=== PATIENT | female | born 1985 | race Caucasian/White ===

== ENCOUNTER 2017-04-18 00:17 | Inpatient (IN) | payer BC ==
[~2017-04-18] VITALS: Ht 162.6 cm; Wt 70.0 kg
[2017-04-18] MEDS ORDERED: PRENATAL VITAM1 EACH PO (01:58)
--- NOTE | 2017-04-18 13:21 | PR ---
[facility] [address] [facility] [place], [place] [address] Signed Progress Notes IP Datetime Report Generated by CPN: 04/18/2017 13:21 PROGRESS NOTES: [id number] Impression: Normal progression of labor Procedures: Sterile Vag Exam Plan: Continue present management Informed Consent Obtain: Vaginal Delivery; Risks, Benefits and Alternatives Discussed VITAL SIGNS: [id number] Vital Signs: Reviewed; Within Normal Limits EXAM: [id number] Dilatation: 4.0 Effacement: 80 Station: -2 Uterine Contractions: every one to three minutes MEMBRANES: [id number] Membrane Status: Ruptured Amniotic Fluid Color: Clear Comments: patient progressing. status reassuring Fetus A: [id number] FHR Baseline: 1390's Variability: Moderate 6-25bpm Accelerations: 15X15 Decelerations: Variable FHR Category: Category I Presentation: Vertex Comments on Fetus A: reactive Fetus B: [id number] Signing Physician: Ariana Oneill MD CC: *Electronically Signed* 04/18/17 1321 ARIANA ONEILL MD PATIENT NAME: KIMANI GUTIERREZ PROGRESS NOTE DATE OF : 83 PHYSICIAN: ARIANA ONEILL MD RPT #: [id number] REPORT IS CONFIDENTIAL AND NOT TO BE RELEASED WITHOUT AUTHORIZATION
--- NOTE | 2017-04-18 17:28 | PR ---
[facility] [address] [facility] [place], [place] [address] Signed Progress Notes IP Datetime Report Generated by CPSarah: 04/18/2017 17:27 PROGRESS NOTES: [id number] Impression: Slow Progression of Labor Procedures: Scalp Electrode; Sterile Vag Exam Plan: Continue present management; Augmentation Informed Consent Obtain: Vaginal Delivery; Risks, Benefits and Alternatives Discussed VITAL SIGNS: [id number] Vital Signs: Reviewed; Within Normal Limits EXAM: [id number] Dilatation: 5.0 Effacement: 85 Station: -2 Uterine Contractions: every one to four minutes MEMBRANES: [id number] Membrane Status: Ruptured Amniotic Fluid Color: Clear ROM Note: amniotomy performed, copious clear fluid Comments: slowly progressing - augmentation Fetus A: [id number] FHR Baseline: 130's Variability: Moderate 6-25bpm Accelerations: 15X15 Decelerations: None FHR Category: Category I Presentation: Vertex Comments on Fetus A: reactive Fetus B: [id number] Signing Physician: Ariana Oneill MD CC: *Electronically Signed* 04/18/17 1727 ARIANA ONEILL MD PATIENT NAME: KIMANI GUTIERREZ PROGRESS NOTE DATE OF : 83 PHYSICIAN: ARIANA ONEILL MD RPT #: [id number] REPORT IS CONFIDENTIAL AND NOT TO BE RELEASED WITHOUT AUTHORIZATION
--- NOTE | 2017-04-18 19:57 | PR ---
[facility] [address] [facility] [place], [place] [address] Signed Progress Notes IP Datetime Report Generated by CPN: 04/18/2017 19:57 PROGRESS NOTES: [id number] Impression: Reassuring heart rate Procedures: Epidural Placement Plan: Continue present management; Augmentation Informed Consent Obtain: Vaginal Delivery; Risks, Benefits and Alternatives Discussed VITAL SIGNS: [id number] Vital Signs: Reviewed; Within Normal Limits EXAM: [id number] Dilatation: 7.0 Effacement: 85 Station: -2 Uterine Contractions: every one to three minues MEMBRANES: [id number] Membrane Status: Ruptured Amniotic Fluid Color: Clear ROM Note: amniotomy performed, copious clear fluid Comments: patient comfortable now with epidural in place. Fetus A: [id number] FHR Baseline: 140's Variability: Moderate 6-25bpm Accelerations: 10X10 Decelerations: Variable FHR Category: Category I Presentation: Vertex Comments on Fetus A: reassuring Fetus B: [id number] Signing Physician: Ariana Oneill MD CC: *Electronically Signed* 04/18/171956 ARIANA ONEILL MD PATIENT NAME: KIMANI GUTIERREZ PROGRESS NOTE DATE OF : 83 PHYSICIAN: ARIAAN ONEILL MD RPT #: [id number] REPORT IS CONFIDENTIAL AND NOT TO BE RELEASED WITHOUT AUTHORIZATION
--- NOTE | 2017-04-18 20:11 | PR ---
[facility] [address] [facility] [place], [place] [address] Signed Progress Notes IP Datetime Report Generated by CPN: 04/18/2017 20:11 PROGRESS NOTES: [id number] Impression: Normal progression of labor Procedures: Sterile Vag Exam Plan: Anticipate Vaginal Delivery Informed Consent Obtain: Vaginal Delivery; Risks, Benefits and Alternatives Discussed VITAL SIGNS: [id number] Vital Signs: Reviewed; Within Normal Limits EXAM: [id number] Dilatation: 10.0 Effacement: 100 Station: 0 Uterine Contractions: every two to three minutes MEMBRANES: [id number] Membrane Status: Ruptured Amniotic Fluid Color: Clear ROM Note: amniotomy performed, copious clear fluid Comments: Rapid progress to complete. Bloody show. Anticipate delivery shortly. Fetus A: [id number] FHR Baseline: 140's Variability: Moderate 6-25bpm Accelerations: 15X15 Decelerations: Variable FHR Category: Category I Presentation: Vertex Comments on Fetus A: reactive Fetus B: [id number] Signing Physician: Ariana Oneill MD CC: *Electronically Signed* 04/18/172010 ARIANA ONEILL MD PATIENT NAME: KIMANI GUTIERREZ PROGRESS NOTE DATE OF : 83 PHYSICIAN: ARIANA ONEILL MD RPT #: [id number] REPORT IS CONFIDENTIAL AND NOT TO BE RELEASED WITHOUT AUTHORIZATION
--- NOTE | 2017-04-19 09:04 | PR ---
[facility] [address] [facility] [place], [place] [address] Signed PP Progress Notes Datetime Report Generated by CPN: 04/19/2017 09:04 SUBJECTIVE: [id number] Pain: Within normal limits Nausea/Vomiting: Denies Flatus: Yes Vital Signs: [id number] Vital Signs: Reviewed; Within Normal Limits EXAM: [id number] Cardiovascular: Normal Respiratory: Normal Abdomen/Uterus: Normal Lochia: Normal Vulva/Perineum: Normal Breasts: Normal CVA Tenderness: Normal Extremities: Normal Incision: Not Applicable Progress: Normal IMPRESSION/PLAN/PROCEDURES: [id number] Impression: Normal progression Plan: Continue present management Procedures: None Progress Notes: patient doing well. Signing Physician: Ariana Oneill MD CC: *Electronically Signed* 04/19/17 0904 ARIANA ONEILL MD PATIENT NAME: KIMANI GUTIERREZ PROGRESS NOTE DATE OF : 83 PHYSICIAN: ARIANA ONEILL MD RPT #: [id number] REPORT IS CONFIDENTIAL AND NOT TO BE RELEASED WITHOUT AUTHORIZATION
--- NOTE | 2017-04-20 07:53 | PR ---
[facility] [address] [facility] [place], [place] [address] Signed PP Progress Notes Datetime Report Generated by CPN: 04/20/2017 07:53 SUBJECTIVE: [id number] Pain: Within normal limits Nausea/Vomiting: Denies Flatus: Yes Bowel Movement: Yes Vital Signs: [id number] Vital Signs: Reviewed; Within Normal Limits EXAM: [id number] Cardiovascular: Normal Respiratory: Normal Abdomen/Uterus: Normal Lochia: Normal Vulva/Perineum: Normal Breasts: Normal CVA Tenderness: Normal Extremities: Normal Incision: Not Applicable Progress: Normal IMPRESSION/PLAN/PROCEDURES: [id number] Impression: Normal progression Plan: Discharge Procedures: None Progress Notes: patient and baby doing well. Signing Physician: Ariana Oneill MD CC: *Electronically Signed* 04/20/17 0753 AIRANA ONEILL MD PATIENT NAME: KIMANI GUTIERREZ PROGRESS NOTE DATE OF : 83 PHYSICIAN: ARIANA ONEILL MD RPT #: [id number] REPORT IS CONFIDENTIAL AND NOT TO BE RELEASED WITHOUT AUTHORIZATION
== END 2017-04-20 12:25 | disposition home or self-care (01) | DRG 775 ==
LOC: FBCO → FBC 00:19
PROVIDERS: ADMIT Obstetrics & Gynecology
PROC: 10E0XZZ Delivery of Products of Conception, External Approach (ICD-10-PCS; principal; 2017-04-18)
PROC: 0KQM0ZZ Repair Perineum Muscle, Open Approach (ICD-10-PCS; 2017-04-18)
PROC: 10907ZC Drainage of Amniotic Fluid, Therapeutic from Products of Conception, Via Natural or Artificial Opening (ICD-10-PCS; 2017-04-18)
PROC: 3E0P7GC Introduction of Other Therapeutic Substance into Female Reproductive, Via Natural or Artificial Opening (ICD-10-PCS; 2017-04-18)
PROC: 00HU33Z Insertion of Infusion Device into Spinal Canal, Percutaneous Approach (ICD-10-PCS; 2017-04-18)
PROC: 3E0R3CZ (ICD-10-PCS; 2017-04-18)
DX: O48.0 Post-term pregnancy (principal); O76 Abnormality in fetal heart rate and rhythm complicating labor and delivery; O69.81X0 Labor and delivery complicated by cord around neck, without compression, not applicable or unspecified; O69.82X0 Labor and delivery complicated by other cord entanglement, without compression, not applicable or unspecified; O70.1 Second degree perineal laceration during delivery; O28.8 Other abnormal findings on antenatal screening of mother; O34.43 Maternal care for other abnormalities of cervix, third trimester; N87.1 Moderate cervical dysplasia; N84.1 Polyp of cervix uteri; Z87.440 Personal history of urinary (tract) infections; Z3A.40 40 weeks gestation of pregnancy; Z37.0 Single live birth
CPT/HCPCS: 36415; 76815; 85027; J2550; J2590; J3010; J7120

== ENCOUNTER 2022-02-17 00:04 | Inpatient (IN) | payer BC ==
[~2022-02-17] VITALS: Ht 162.6 cm; Wt 71.7 kg
[~2022-02-17 00:04] MED LIST: PRENATAL VITAM1 EACH PO
--- NOTE | 2022-02-17 09:39 | PR ---
[facility] [address] [facility] [place], [place] [address] Signed Progress Notes IP Datetime Report Generated by CPN: 02/17/2022 09:39 PROGRESS NOTES: [id number] Impression: Normal Progression of Labor Procedures: Artificial ROM Plan: Continue Present Management VITAL SIGNS: [id number] Vital Signs: Reviewed; Within Normal Limits EXAM: [id number] Dilatation: 4.0 Effacement: 50 Station: -3 Contractions: every 2-3 minutes MEMBRANES: [id number] Membranes Status: Ruptured ROM Note: Keira ANDRADE Comments: Comfortable with Epidural. Continue monitoring FETUS A: [id number] FHR Baseline: 130 Variability: Moderate 6-25bpm Accelerations: 15X15 Presentation: Vertex FETUS B: [id number] Signing Physician: Pola Ellis MD Copies: ~ *Electronically Signed* 02/17/22 0939 POLA ELLIS MD PATIENT NAME: KIMANI GUTIERREZ PROGRESS NOTE DATE OF : 83 PHYSICIAN: POLA ELLIS MD RPT #: [id number] REPORT IS CONFIDENTIAL AND NOT TO BE RELEASED WITHOUT AUTHORIZATION
--- NOTE | 2022-02-17 13:02 | PR ---
[facility] [address] [facility] [place], [place] [address] Signed Progress Notes IP Datetime Report Generated by CPN: 02/17/2022 13:02 PROGRESS NOTES: [id number] Impression: Normal Progression of Labor Other Impressions: Slow Progress Procedures: Intrauterine Pressure Catheter Plan: Augmentation; Anticipate Vaginal Delivery VITAL SIGNS: [id number] Vital Signs: Reviewed; Within Normal Limits EXAM: [id number] Dilatation: 4.0 Effacement: 50 Station: -2 Contractions: every 2-3 minutes MEMBRANES: [id number] Membranes Status: Ruptured ROM Note: Keira ANDRADE Comments: Slow progress since AROM Will start Pitocin Augmentation FETUS A: [id number] FHR Baseline: 130 Variability: Moderate 6-25bpm Accelerations: 15X15 Presentation: Vertex FETUS B: [id number] Signing Physician: Pola Ellis MD Copies: ~ *Electronically Signed* 02/17/22 1302 POLA ELLIS MD PATIENT NAME: KIMANI GUTIERREZ PROGRESS NOTE DATE OF : 83 PHYSICIAN: POLA ELLIS MD RPT #: [id number] REPORT IS CONFIDENTIAL AND NOT TO BE RELEASED WITHOUT AUTHORIZATION
--- NOTE | 2022-02-17 15:44 | PR ---
[facility] [address] [facility] [place], [place] [address] Signed Progress Notes IP Datetime Report Generated by CPN: 02/17/2022 15:44 PROGRESS NOTES: [id number] Impression: Normal Progression of Labor Other Impressions: Slow Progress Procedures: Intrauterine Pressure Catheter Plan: Continue Present Management; Anticipate Vaginal Delivery VITAL SIGNS: [id number] Vital Signs: Reviewed; Within Normal Limits EXAM: Q8504224 Dilatation: 9.0 Effacement: 100 Station: -2 Contractions: every 2-3 minutes MEMBRANES: [id number] Membranes Status: Ruptured ROM Note: Keira ANDRADE Comments: Getting uncomfortable, mainly in back. Expect to be able to start pushing shortly. Offered Epidural redose, but patient does not feel needed now. FETUS A: [id number] FHR Baseline: 130 Variability: Moderate 6-25bpm Accelerations: 15X15 Presentation: Vertex FETUS B: [id number] Signing Physician: Pola Ellis MD Copies: ~ *Electronically Signed* 02/17/22 1544 POLA ELLIS MD PATIENT NAME: BRENDAKIMANI JOHN PROGRESS NOTE DATE OF : 83 PHYSICIAN: POLA ELLIS MD RPT #: [id number] REPORT IS CONFIDENTIAL AND NOT TO BE RELEASED WITHOUT AUTHORIZATION
--- NOTE | 2022-02-17 19:15 | PR ---
[facility] [address] [place], [place] [address] Signed PP Progress Notes Datetime Report Generated by CPN: 02/17/2022 19:14 SUBJECTIVE: [id number] Pain: Abnormal Pain Comments: bilateral low abdominal and low back pain Nausea/Vomiting: Denies Vital Signs: [id number] Vital Signs: Reviewed; Within Normal Limits Notable Details: afebrile EXAM: Ongoing Abdomen/Uterus: Normal Lochia: Normal CVA Tenderness: Normal Extremities: Normal Exam Comments: abdomen soft, tender to palpation bilateral lower quadrants, no guarding, no masses palpable. Tender suprapubic. low back slight tender to palpation bilateral, no specific areas, no muscle tightness, no redness or swelling IMPRESSION/PLAN/PROCEDURES: [id number] Impression: Pain Other Plans: [place] 5/325 prn. Ibuprofen prn Procedures: None Progress Notes: C/o rapidly increasing bilateral low back and lower quadrants abdominal pain, about 3 hours normal vaginal delivery, no excessive trauma during delivery. Denies shortness of breath, excessive bleeding, nausea/vomiting, no dysuria. Cavazos Catheter inserted: 800 mg drained from bladder - feeling a little better after bladder drained CBC, CMP ordered Will continue monitoring. Signing Physician: Dany Ellis MD Copies: ~ *Electronically Signed* 02/17/221913 DANY ELLIS MD PATIENT NAME: KIMANI GUTIERREZ PROGRESS NOTE DATE OF : 83 PHYSICIAN: DANY ELLIS MD RPT #: [id number] REPORT IS CONFIDENTIAL AND NOT TO BE RELEASED WITHOUT AUTHORIZATION
--- NOTE | 2022-02-17 19:52 | PR ---
[facility] [address] [facility] [place], [place] [address] Signed PP Progress Notes Datetime Report Generated by CPN: 02/17/2022 19:52 SUBJECTIVE: [id number] Pain: Within Normal Limits Pain Comments: bilateral low abdominal and low back pain Nausea/Vomiting: Denies Vital Signs: [id number] Vital Signs: Reviewed; Within Normal Limits Notable Details: afebrile EXAM: Ongoing Abdomen/Uterus: Normal Lochia: Normal CVA Tenderness: Normal Extremities: Normal Exam Comments: abdomen soft, tender to palpation bilateral lower quadrants, no guarding, no masses palpable. Tender suprapubic. low back slight tender to palpation bilateral, no specific areas, no muscle tightness, no redness or swelling IMPRESSION/PLAN/PROCEDURES: [id number] Impression: Normal Progression Plan: Continue Present Management Other Plans: [place] 5/325 prn. Ibuprofen prn Procedures: None Progress Notes: Feeling much better, smiling, still some low abdominal pain, more like uterine cramping, worse during nursing. [place] helping with pain Reviewed CBC, CMP Will keep Cavazos in place until morning. Can change to Percocet, if [place] not effective Signing Physician: Dany Ellis MD Copies: ~ *Electronically Signed* 02/17/221951 DANY ELLIS MD PATIENT NAME: KIMANI GUTIERREZ PROGRESS NOTE DATE OF : 83 PHYSICIAN: DANY ELLIS MD RPT #: [id number] REPORT IS CONFIDENTIAL AND NOT TO BE RELEASED WITHOUT AUTHORIZATION
--- NOTE | 2022-02-18 10:01 | PR ---
[facility] [address] [facility] [place], [place] [address] Signed PP Progress Notes Datetime Report Generated by CPN: 02/18/2022 10:01 SUBJECTIVE: [id number] Pain: Within Normal Limits Pain Comments: bilateral low abdominal and low back pain Nausea/Vomiting: Denies Vital Signs: [id number] Vital Signs: Reviewed; Within Normal Limits Notable Details: afebrile EXAM: Met Abdomen/Uterus: Normal Lochia: Normal CVA Tenderness: Normal Extremities: Normal Exam Comments: abdomen soft, tender to palpation bilateral lower quadrants, no guarding, no masses palpable. Tender suprapubic. low back slight tender to palpation bilateral, no specific areas, no muscle tightness, no redness or swelling IMPRESSION/PLAN/PROCEDURES: [id number] Impression: Normal Progression Plan: Continue Present Management Other Plans: [place] 5/325 prn. Ibuprofen prn Procedures: None Progress Notes: Feeling better, still with uterine cramping. Voiding without difficulty. Signing Physician: Dany Ellis MD Copies: ~ *Electronically Signed* 02/18/22 1001 DANY ELLIS MD PATIENT NAME: KIMANI GUTIERREZ RECORD #: [id number] PROGRESS NOTE DATE OF : 83 PHYSICIAN: DANY ELLIS MD RPT #: [id number] REPORT IS CONFIDENTIAL AND NOT TO BE RELEASED WITHOUT AUTHORIZATION
--- NOTE | 2022-02-19 10:34 | PR ---
[facility] [address] [place], [place] [address] Signed PP Progress Notes Datetime Report Generated by CPN: 02/19/2022 10:34 SUBJECTIVE: [id number] Pain: Within Normal Limits Pain Comments: bilateral low abdominal and low back pain Nausea/Vomiting: Denies Vital Signs: [id number] Vital Signs: Reviewed; Within Normal Limits Notable Details: PP Hgb/Hct = 11.2/34.4 EXAM: Met Abdomen/Uterus: Normal Lochia: Normal CVA Tenderness: Normal Extremities: Normal Exam Comments: abdomen soft, tender to palpation bilateral lower quadrants, no guarding, no masses palpable. Tender suprapubic. low back slight tender to palpation bilateral, no specific areas, no muscle tightness, no redness or swelling IMPRESSION/PLAN/PROCEDURES: [id number] Impression: Normal Progression Plan: Discharge Other Plans: [place] 5/325 prn. Ibuprofen prn Procedures: None Progress Notes: Doing well, without complaint, ready to go home. Signing Physician: Dany Ellis MD Copies: ~ *Electronically Signed* 02/19/22 1034 DANY ELLIS MD PATIENT NAME: KIMANI GUTIERREZ PROGRESS NOTE DATE OF : 83 PHYSICIAN: DANY ELLIS MD RPT #: [id number] REPORT IS CONFIDENTIAL AND NOT TO BE RELEASED WITHOUT AUTHORIZATION
== END 2022-02-19 11:40 | disposition home or self-care (01) | DRG 807 ==
LOC: FBC 00:04
PROVIDERS: ADMIT General Practice; ATTEND General Practice
PROC: 10E0XZZ Delivery of Products of Conception, External Approach (ICD-10-PCS; principal; 2022-02-17)
PROC: 3E0P7VZ Introduction of Hormone into Female Reproductive, Via Natural or Artificial Opening (ICD-10-PCS; 2022-02-17)
PROC: 10907ZC Drainage of Amniotic Fluid, Therapeutic from Products of Conception, Via Natural or Artificial Opening (ICD-10-PCS; 2022-02-17)
PROC: 0HQ9XZZ Repair Perineum Skin, External Approach (ICD-10-PCS; 2022-02-17)
DX: O70.0 First degree perineal laceration during delivery (principal); Z37.0 Single live birth; Z3A.39 39 weeks gestation of pregnancy; Z67.10 Type A blood, Rh positive; Z20.822 Contact with and (suspected) exposure to COVID-19
CPT/HCPCS: 01960; 36415; 80053; 85025; 85027; 86850; 86900; 86901; 87502; A9270; J2590; J2795; J7121; U0003